=== PATIENT | male | born 1960 | race Caucasian/White ===

== ENCOUNTER 2017-10-28 16:33 | Outpatient (CLI) | payer OTHER, SELFPAY ==
--- NOTE | 2017-10-24 11:06 | DI.RAD_ITS ---
SYMPTOMS/DIAGNOSIS: ANKLE FX RIGHT ANKLE: Three views. Comparison 10/04/17. The cast has been removed. There are again seen three screws transfixing the distal right tibia and fibula. There is a single screw in the medial malleolus. No change or evidence of failure of the orthopedic hardware is seen. No new fractures or dislocations are present. The bones are normally mineralized. There is persistent mild soft tissue swelling about the ankle. IMPRESSION: Overall stable appearance of the right ankle compared to the prior examination.
== END 2017-10-28 16:53 ==
PROVIDERS: PCP Nurse Practitioner Primary Care; Visit Provider Physician Assistant Surgical
DX: S82.851D Displaced trimalleolar fracture of right lower leg, subsequent encounter for closed fracture with routine healing (principal)
CPT/HCPCS: 73610

== ENCOUNTER 2017-11-21 10:02 | Outpatient (CLI) | payer OTHER, SELFPAY ==
--- NOTE | 2017-11-21 10:00 | DI.RAD_ITS ---
SYMPTOMS/DIAGNOSIS: F/U ORIF RIGHT ANKLE: Comparison is made with [id number]. Hardware is again noted in the distal tibia and fibula and at the medial malleolus. Bony density is again noted beneath the lateral malleolus. The ankle mortise appears intact.
== END 2017-11-21 10:22 ==
PROVIDERS: PCP Nurse Practitioner Primary Care; Visit Provider Orthopaedic Surgery
DX: S82.851D Displaced trimalleolar fracture of right lower leg, subsequent encounter for closed fracture with routine healing (principal)
CPT/HCPCS: 73610

== ENCOUNTER 2017-12-17 09:40 | Outpatient (CLI) | payer OTHER, SELFPAY ==
--- NOTE | 2017-12-17 09:35 | DI.RAD_ITS ---
SYMPTOM/DIAGNOSIS: CHECK PROX FIB FX FOR HEALING, F/U ORIF RIGHT ANKLE: Three views. Comparison is made with 11/21/17. There are again seen three screws within the distal tibia and fibula and an anchor seen in the medial malleolus. The orthopedic hardware appears stable. There is no change in alignment of the ossific densities at the anterior and posterior ankle. The ossific density at the tip of the lateral malleolus appears stable. No new fractures or dislocations are present. RIGHT TIB-FIB: The distal tibia and fibula are included on the xray of the ankle performed the same day. There is a comminuted fracture at the junction of the proximal and middle thirds of the right fibula. There is a shaft widths lateral displacement of the distal fracture. No other fracture or dislocation is seen. IMPRESSION: Comminuted displaced fracture of the proximal right fibula.
== END 2017-12-17 10:00 ==
PROVIDERS: PCP Nurse Practitioner Primary Care; Visit Provider Orthopaedic Surgery
DX: S82.851D Displaced trimalleolar fracture of right lower leg, subsequent encounter for closed fracture with routine healing (principal)
CPT/HCPCS: 73590; 73610